=== PATIENT | female | born 1970 | race Caucasian/White ===

== ENCOUNTER → 2017-10-25 | Outpatient (CLI) | payer OTHER | LOC: COL.RAD 10-18 13:15 | DX: M47.816 Spondylosis without myelopathy or radiculopathy, lumbar region (principal); Q76.49 Other congenital malformations of spine, not associated with scoliosis; R20.2 Paresthesia of skin ==

== ENCOUNTER → 2018-03-04 | Outpatient (CLI) | payer OTHER | LOC: COL.RAD 14:00 | DX: M62.89 Other specified disorders of muscle (principal) ==

== ENCOUNTER 2022-06-26 06:08 | Day surgery (SDC) | payer BC ==
[~2022-06-26] VITALS: Ht 165.1 cm; Wt 67.3 kg
[2022-06-26 06:17] VITALS: BP 135/88; PULSE 80; TEMP 97.9
[2022-06-26] MEDS ORDERED: PRAVACHOL80 MG PO (06:20)
[2022-06-26 07:35] VITALS: BP 100/77; PULSE 81; TEMP 97
--- NOTE | 2022-06-26 07:35 | NUR ---
The patient arrived back to [facility] from the endoscopy suite at this time. The patient ambulated from the cart to the recliner in her room with the stand by assistance of one nurse and appeared to tolerate the activity well. Vital signs were started at this time. The patient agrees to try some juice and a muffin. Call light is within reach. Denies any further needs.
[2022-06-26 07:50] VITALS: BP 110/78; PULSE 68
--- NOTE | 2022-06-26 07:50 | NUR ---
Dr. Gutierrez is at the patient's bedside discussing the findings of the procedure.
[2022-06-26 08:00] VITALS: BP 110/76; PULSE 68
--- NOTE | 2022-06-26 08:00 | NUR ---
The patient has finished her food and drink and voices a desire to be discharged home. The patient's IV was removed and a pressure dressing was applied to the site. Discharge instructions were reviewed with the patient and she verbalized understanding. She is going to get dressed while the nurse calls her daughter to come pick her up.
--- NOTE | 2022-06-26 08:13 | NUR ---
The patient was escorted out via wheelchair to a private vehicle by MARLENE Ochoa. The patient's belongings and discharge paperwork were sent with her.The patient's daughter is present to drive her home.
== END 2022-06-26 08:13 | disposition home or self-care (01) ==
LOC: SDCO 06:08
DX: Z12.11 Encounter for screening for malignant neoplasm of colon (principal); K57.30 Diverticulosis of large intestine without perforation or abscess without bleeding; K64.0 First degree hemorrhoids; K63.5 Polyp of colon; Z28.310 Unvaccinated for COVID-19
CPT/HCPCS: J2704; J7030